=== PATIENT | male | born 1995 | race African-American/Black ===

== ENCOUNTER 2018-06-10 12:57 | Emergency (ER) | payer SELFPAY ==
[~2018-06-10] VITALS: Ht 182.9 cm; Wt 78.6 kg
[~2018-06-10 12:57] MED LIST: SULF-59 PO
[2018-06-10 13:08] VITALS: BP 152/98
--- NOTE | 2018-06-10 13:14 | NUR ---
PT AMBULATED TO LOBBY
--- NOTE | 2018-06-10 15:47 | NUR ---
NO ANSWER IN ER LOBBY
--- NOTE | 2018-06-10 17:16 | NUR ---
PT AMBULATES TO BED 5
--- NOTE | 2018-06-10 17:30 | NUR ---
PT ARRIVED TO THE ED W/ A TOOTH ACHE ON THE RIGHT SIDE UPPER PART OF MOUTH. PT STATES HE WENT TO THE DENTIST LAST SUNDAY AND RECIEVED MEDICATIONPENECILLIN 500MG AND IBUPROFEN 800 MG. PT STATES HE HAS NO RELIEF FROM PAIN AND HIS RIGHT SIDE OF FACE IS SWOLLEN AND HAS REDDNESS AND SWEELING AROUND RIGHT EYE. PT WENT TO URGENT CARE TODAY. [facility] REQUESTED FOR HIM TO COME TO ER. PT IS A/O X 4. RR EVEN AND UNLABORED, DENIES ANY SOB OR DIFFICULTY BREATHING, DENIES ANY N/V/D. DENIES ANY FEVER OR CHILLS, DENIES ANY VISION CHANGES. MEDICAL HX NO ALLERGIES NKA PAIN LEVEL IS 7/10 (PRESSURE) PT STATED THE DENTIST DID A DEEP CLEANING AND X RAY. HAS OPP ON SUNDAY
[2018-06-10] MEDS ORDERED: KETOROLAC 60 MG/2 ML VIAL IM ONE (18:20)
--- NOTE | 2018-06-10 18:31 | NUR ---
PT PROVIDED WITH A DINNER, TOLERATED WELL. DENIES ANY NAUSEA AT THIS TIME. FAMILY MEMBER AT BEDSIDE. WILL CONTINUE TO MONITOR.
[2018-06-10] MEDS ORDERED: cefTRIAXone 1,000 MG VIAL ONE (18:50)
[2018-06-10 19:10] VITALS: BP 143/79
--- NOTE | 2018-06-10 19:10 | NUR ---
Patient discharged with v/s stable. Written and verbal after care instructions given and explained. Patient alert, oriented and verbalized understanding of instructions. Ambulatory with steady gait. All questions addressed prior to discharge. ID band removed. Patient advised to follow up with PMD. Rx of MOTRIN, AUGMENTIN, NORCO given. Patient educated on indication of medication including possible reaction and side effects. Opportunity to ask questions provided and answered.
== END 2018-06-10 19:10 | disposition home or self-care (01) ==
LOC: MED 12:57
DX: K04.7 Periapical abscess without sinus (principal); Z79.2 Long term (current) use of antibiotics
CPT/HCPCS: 96365; 96372; 99283; J0696; J1885; J7060

== ENCOUNTER 2018-12-18 10:26 | Emergency (ER) | payer MEDICAID ==
[~2018-12-18] VITALS: Ht 182.9 cm; Wt 77.1 kg
[2018-12-18 10:33] VITALS: BP 131/57
--- NOTE | 2018-12-18 10:38 | NUR ---
PT AMB TO BED 8 WITH STEADY GAIT
--- NOTE | 2018-12-18 10:45 | NUR ---
PT PRESENTS TO ED WITH C/O DIARRHEA AND GENERALIZED ABD PAIN X 1 DAY. PT DENIES NAUSEA, VOMITING AND FEVER. PAIN 8/10 AT THIS TIME. ERMD TO EVALUATE PT.
--- NOTE | 2018-12-18 11:20 | NUR ---
DR ANN AT BEDSIDE
[2018-12-18] MEDS ORDERED: DIPHENOXYLATE /ATROPINE 2.5 MG TAB PO ONE (11:30)
[2018-12-18 12:19] VITALS: BP 120/65
--- NOTE | 2018-12-18 12:20 | NUR ---
Patient discharged with v/s stable. Written and verbal after care instructions given and explained. Patient alert, oriented and verbalized understanding of instructions. Ambulatory with steady gait. All questions addressed prior to discharge. ID band removed. Patient advised to follow up with PMD. Rx of LOMOTIL AND ZOFRAN PRN given. Patient educated on indication of medication including possible reaction and side effects. Opportunity to ask questions provided and answered.
== END 2018-12-18 12:20 | disposition home or self-care (01) ==
LOC: MED 10:26
DX: R19.7 Diarrhea, unspecified (principal); R11.2 Nausea with vomiting, unspecified; R42 Dizziness and giddiness; F12.10 Cannabis abuse, uncomplicated; Z79.2 Long term (current) use of antibiotics
CPT/HCPCS: 99283

== ENCOUNTER 2018-12-22 18:31 | Emergency (ER) | payer MEDICAID ==
[~2018-12-22] VITALS: Ht 182.9 cm; Wt 77.1 kg
[2018-12-22 18:32] VITALS: BP 149/84
[2018-12-22 19:02] VITALS: BP 149/84
== END 2018-12-22 18:43 | disposition home or self-care (01) ==
LOC: MED 18:31
DX: R11.2 Nausea with vomiting, unspecified (principal); R19.7 Diarrhea, unspecified; Z79.2 Long term (current) use of antibiotics
CPT/HCPCS: 99281

== ENCOUNTER 2020-11-20 13:17 | Emergency (ER) | payer SELFPAY ==
[~2020-11-20] VITALS: Ht 182.9 cm; Wt 81.6 kg
[2020-11-20 13:19] VITALS: BP 182/76
[2020-11-20] MEDS ORDERED: ACETAMINOPHEN EXTRA STRENGTH 500 MG TAB PO ONE (13:25)
[2020-11-20] MEDS ORDERED: KETOROLAC 30 MG/ML VIAL IM ONE (13:45)
[2020-11-20] MEDS ORDERED: ACET-10509 PO (13:45)
[2020-11-20] MEDS ORDERED: PRED20TA5 PO (13:45)
[2020-11-20] MEDS ORDERED: PENI500T20 PO (13:45)
--- NOTE | 2020-11-20 13:45 | NUR ---
25 Y/O M BIB SELF FROM HOME, PATIENT PRESENTS TO ED WITH SORE THROAT FOR 3 DAYS. PT STATES HE HAS SHARP PAIN WITH SWALLOWING. DENIES N/V/D; SKIN IS PINK/WARM/DRY; AAOX4 WITH EVEN AND STEADY GAIT; LUNGS CLEAR BL; HR EVEN AND REGULAR; PT DENIES ANY CP, SOB, OR COUGH AT THIS TIME; PATIENT STATES PAIN OF 10/10 AT THIS TIME; VSS; PATIENT POSITIONED FOR COMFORT; HOB ELEVATED; BEDRAILS UP X2; BED DOWN. ER MD MADE AWARE OF PT STATUS. UPON ASSESSMENT, PT HAS VISIBLE REDNESS AND SWELLING IN BACK OF THROAT. PMH: DENIES NKA
[2020-11-20] MEDS ORDERED: KETOROLAC 60 MG/2 ML VIAL IM ONE (13:50)
[2020-11-20 14:12] VITALS: BP 182/76
--- NOTE | 2020-11-20 14:13 | NUR ---
Patient discharged with v/s stable. Written and verbal after care instructions given and explained. Patient alert, oriented and verbalized understanding of instructions. Ambulatory with steady gait. All questions addressed prior to discharge. ID band removed. Patient advised to follow up with PMD. Rx of ACETAMINOPHEN, PENICILLIN, PREDNISONE given. Patient educated on indication of medication including possible reaction and side effects. Opportunity to ask questions provided and answered.
== END 2020-11-20 14:13 | disposition home or self-care (01) ==
LOC: MED 13:17
DX: J02.0 Streptococcal pharyngitis (principal)
CPT/HCPCS: 96372; 99283; J1885